=== PATIENT | male | born 1985 | race Caucasian/White ===

== ENCOUNTER 2017-06-02 02:40 | Emergency (ER) | payer OTHER ==
[~2017-06-02] VITALS: Ht 170.2 cm; Wt 74.0 kg
[2017-06-02] MEDS ORDERED: ACETAMINOPHEN 325 MG TABLET PO ONE (03:00)
[2017-06-02 03:18] LABS: RAPID INFLUENZA A Negative (Negative); RAPID INFLUENZA B Negative (Negative)
[2017-06-02] MEDS ORDERED: IBUPROFEN 200 MG TABLET PO ONE (03:30)
[2017-06-02 03:40] LABS: BASOPHILS # (AUTO) 0.03 x10^3/uL (0-0.1); BASOPHILS % (AUTO) 1 % (0-1); EOSINOPHILS % (AUTO) 0 % (1-7); LYMPHOCYTES # (AUTO) 1.46 x10^3/uL (1-3.4); LYMPHOCYTES % (AUTO) 25 % (22-44); MD NO; MEAN CORPUSCULAR HEMOGLOBIN 31.3 pg (27.5-34.5); MEAN CORPUSCULAR VOLUME 95.1 fL (81-97); MEAN PLATELET VOLUME 7.8 fL (7.4-10.4); MONOCYTES % (AUTO) 17 % (2-9); NEUTROPHILS # (AUTO) 3.27 x10^3/uL (1.8-6.8); NEUTROPHILS % (AUTO) 57 % (42-75); PLATELET COUNT 137 x10^3/uL (130-400); RED BLOOD COUNT 4.72 x10^6/uL (4.38-5.82); RED CELL DISTRIBUTION WIDTH 13.4 % (9.4-14.8)
[2017-06-02 03:50] LABS: ALBUMIN 3.2 g/dL (3.4-5.0); ANION GAP 9 mmol/L (5-15); CALCIUM 7.5 mg/dL (8.5-10.1); CHLORIDE 99 mmol/L (98-107); CREATININE 0.86 mg/dL (0.7-1.3)
[2017-06-02] MEDS ORDERED: POTASSIUM CHLORIDE 20 MEQ TAB.ER.PRT ONE (04:28)
[2017-06-02] MEDS ORDERED: POTASSIUM CHLORIDE 20 MEQ TAB.ER.PRT PO ONE (04:30)
[2017-06-02 04:36] VITALS: BP 118/72
== END 2017-06-02 04:44 | disposition home or self-care (01) ==
LOC: ED 04:13
DX: H66.003 Acute suppurative otitis media without spontaneous rupture of ear drum, bilateral (principal); E87.6 Hypokalemia; F15.10 Other stimulant abuse, uncomplicated; R05 Cough; Z88.0 Allergy status to penicillin
CPT/HCPCS: 36415; 71046; 80048; 82040; 85025; 87400; 99285

== ENCOUNTER 2018-06-03 03:00 | Emergency (ER) | payer MEDICAID ==
[~2018-06-03] VITALS: Ht 175.3 cm; Wt 60.0 kg
[2018-06-03] MEDS ORDERED: MORPHINE SULFATE 4 MG/ML, 1ML ONE ×2 (03:19→04:10)
[2018-06-03] MEDS ORDERED: ONDANSETRON 2MG/ML, 2ML ONE (03:19)
[2018-06-03] MEDS: MORPHINE SULFATE 4 MG/ML, 1ML IVPush PRN ×2 (03:23→04:12)
--- NOTE | 2018-06-03 03:24 | NUR ---
PT PRESENTS TO ED C/O L TESTICULAR PAIN AND SWELLING RADIATING TO L FLANK. DENIES ANY KNOWN TRAUMA. STATES HEMATURIAx2 DAYS. DENIES FEVERS. PT IN APPARENT PAIN AND WRITHING AROUND GURNEY. PT MEDICATED PER MAR AT THIS TIME.
[2018-06-03] MEDS ORDERED: ONDANSETRON 2MG/ML, 2ML IVPush ONE (03:30)
[2018-06-03] MEDS ORDERED: SODIUM CHLORIDE 0.9% 1,000ML IVBOLUS ONE (03:30)
[2018-06-03 03:32] LABS: BASOPHILS # (AUTO) 0.03 x10^3/uL (0-0.1); BASOPHILS % (AUTO) 0 % (0-1); EOSINOPHILS # (AUTO) 0.17 x10^3/uL (0-0.4); EOSINOPHILS % (AUTO) 1 % (1-7); LYMPHOCYTES % (AUTO) 7 % (22-44); MD NO; MEAN CORPUSCULAR HEMOGLOBIN 33.6 pg (27.5-34.5); MEAN CORPUSCULAR HGB CONC 34.2 g/dL (33.2-36.2); MEAN CORPUSCULAR VOLUME 98.3 fL (81-97); MEAN PLATELET VOLUME 6.9 fL (7.4-10.4); MONOCYTES % (AUTO) 9 % (2-9); NEUTROPHILS # (AUTO) 12.03 x10^3/uL (1.8-6.8); NEUTROPHILS % (AUTO) 83 % (42-75); PLATELET COUNT 284 x10^3/uL (130-400); RED BLOOD COUNT 4.56 x10^6/uL (4.38-5.82); RED CELL DISTRIBUTION WIDTH 13.2 % (9.4-14.8)
[2018-06-03 03:44] LABS: ALBUMIN 3.4 g/dL (3.4-5.0); ANION GAP 7 mmol/L (5-15); CHLORIDE 109 mmol/L (98-107); CREATININE 0.75 mg/dL (0.7-1.3)
[2018-06-03] MEDS ORDERED: DOXYCYCLINE 100MG TABLET ONE (04:18)
[2018-06-03] MEDS ORDERED: CEFTRIAXONE 250 MG ONE (04:18)
[2018-06-03 04:23] LABS: CULTURE INDICATED? YES; MICROSCOPIC INDICATED
--- NOTE | 2018-06-03 04:23 | NUR ---
PT SLEEPING COMFORTABLY ON GURNEY AND STATES PAIN 3/10 AFTER 2ND DOSE OF MORPHINE. ABX ADMIN PER JUL. NO BLOOD CULTURES AT THIS TIME. PER MD REQUEST.
[2018-06-03 04:24] VITALS: BP 125/80
[2018-06-03] MEDS ORDERED: CEFTRIAXONE 250 MG IV ONE (04:30)
[2018-06-03] MEDS ORDERED: DOXYCYCLINE 100MG TABLET PO ONE (04:30)
== END 2018-06-03 04:56 | disposition home or self-care (01) ==
LOC: ED 04:50
DX: N45.1 Epididymitis (principal); N45.2 Orchitis; N43.3 Hydrocele, unspecified; F17.200 Nicotine dependence, unspecified, uncomplicated; Z21 Asymptomatic human immunodeficiency virus [HIV] infection status; Z72.9 Problem related to lifestyle, unspecified
CPT/HCPCS: 36415; 76870; 80048; 81001; 82040; 85025; 87086; 87491; 87591; 96374; 96375; 96376; 99284; J0696; J2405; J7030